=== PATIENT | male | born 1950 | race Two or more races ===

== ENCOUNTER 2025-02-25 08:53 | Inpatient (IN) | payer OTHER ==
[~2025-02-25] VITALS: Ht 165.1 cm; Wt 86.2 kg
[2025-02-25] MEDS ORDERED: NORVASC5 MG PO (09:11)
[2025-02-25] MEDS ORDERED: ZETIA10 MG PO (09:11)
[2025-02-25] MEDS ORDERED: ATORVASTATIN CA20 MG PO (09:11)
--- NOTE | 2025-02-25 09:13 | NUR ---
SE RECIBE GREER ALERTA Y ORIENTADO X3 QUIEN REFIERE HINCHAZON EN LA PIERNA DERECHA. SE OBSERVA PIERNA CON EDEMA, ERITEMA. SE OSBERVAN DOS ULCERAS CON SIGNOS DE INFECCION Y TEJIDO NECROTICO. SE MIDEN S/V Y SE UBICA.
--- NOTE | 2025-02-25 10:04 | NUR ---
SE ORIENTA PTE SOBRE TX, REFIERE ENTENDER Y ACEPTAR. SE LE MARIANNE MUESTRAS DE LABORATORIO, SE CANALIZA Y SE ENTREGA KIT PARA MUESTRA DE LABORATORIO.
[2025-02-25] MEDS ORDERED: VANCOMYCIN HCL 1,000 MG VIAL IV ONE (10:30)
[2025-02-25 10:36] LABS: URINE APPEARANCE Clear; URINE BILIRRUBIN Negative (NEGATIVE); URINE BLOOD Negative; URINE COLOR Dark Yellow; URINE GLUCOSE Negative (NEGATIVE); URINE KETONE Trace (NEGATIVE); URINE LEUKOCYTE Negative; URINE NITRATE Negative; URINE PROTEIN 30 (NEGATIVE)
[2025-02-25 10:43] LABS: URINE BACTERIA 9.7 uL (0.0-1933); URINE EPITHELIAL CELLS 4.8 uL (0.0-38.8); URINE RBC 12.5 uL (0.0-20.8); URINE WBC 4.4 uL (0.0-23.2)
[2025-02-25 11:10] LABS: URINE CAST 0.73 uL (0.0-1.40)
[2025-02-25 11:21] LABS: BASO % 0.3 % (0.1-1.2); EOS # 0.22 (0.04-0.54); EOS % 1.6 % (0.7-7.0); HEMATOCRIT 43.1 % (40.1-51.0); HEMOGLOBIN 14.7 g/dL (13.7-17.5); LYMPH % 13.2 % (19.3-53.1); MEAN CORPUSCULAR HEMOGLOBIN 29.8 pg (25.6-32.2); MONO # 1.99 (0.24-0.82); NEUT # 9.57 (1.56-6.13); PLATELET COUNT 331 K/uL (163-369); RED BLOOD COUNT 4.94 M/uL (4.63-6.08); RED CELL DISTRIBUTION WIDTH 13.1 % (11.6-14.4)
[2025-02-25 11:24] LABS: MONO % 14.6 % (4.7-12.5)
[2025-02-25 11:39] LABS: CALCIUM 9.1 mg/dL (8.5-10.1); CREATININE SERUM 0.95 mg/dL (0.70-1.30); GFR 77.29; POTASSIUM 4.4 mEq/L (3.5-5.1)
[2025-02-25] MEDS ORDERED: VANCOMYCIN HCL 1,000 MG VIAL ONE ×2 (11:44→21:18)
[2025-02-25 16:49] VITALS: BP 125/66
[2025-02-25 17:27] VITALS: BP 141/83; O2SAT 96
[2025-02-25] MEDS ORDERED: hydrALAZINE HCL 20 MG VIAL IV PRN (19:15)
[2025-02-25] MEDS ORDERED: MORPHINE SULFATE 4 MG/ML CARTRIDGE IV PRN (19:15)
[2025-02-25] MEDS ORDERED: SODIUM CHLORIDE 0.45 % 1,000 ML IV SCH (19:15)
[2025-02-25] MEDS ORDERED: ACETAMINOPHEN 500 MG GEL..CAP PO PRN (19:15)
[2025-02-25] MEDS ORDERED: ATORVASTATIN CALCIUM 40 MG TABLET PO NR (20:00)
[2025-02-25] MEDS ORDERED: PIPERACILLIN/TAZOBACTAM SODIUM 3.375 GM in 0.9 % SODIUM CHLORIDE 100 ML IV SCH (20:00)
[2025-02-25] MEDS ORDERED: DOCUSATE SODIUM 100MG CAP PO SCH (21:00)
[2025-02-25] MEDS ORDERED: VANCOMYCIN HCL 1,000 MG VIAL IV SCH (21:00)
[2025-02-26 01:00] VITALS: BP 113/70; O2SAT 95
[2025-02-26] MEDS ORDERED: VANCOMYCIN HCL 1,000 MG VIAL ONE ×3 (06:55→14:53)
[2025-02-26 07:09] LABS: BASO % 0.3 % (0.1-1.2); EOS # 0.41 (0.04-0.54); EOS % 3.8 % (0.7-7.0); HEMATOCRIT 35.6 % (40.1-51.0); HEMOGLOBIN 12.1 g/dL (13.7-17.5); LYMPH % 11.1 % (19.3-53.1); MEAN CORPUSCULAR HEMOGLOBIN 29.6 pg (25.6-32.2); MONO # 1.79 (0.24-0.82); NEUT # 7.38 (1.56-6.13); PLATELET COUNT 288 K/uL (163-369); RED BLOOD COUNT 4.09 M/uL (4.63-6.08); RED CELL DISTRIBUTION WIDTH 13.1 % (11.6-14.4)
[2025-02-26 07:27] LABS: MONO % 16.5 % (4.7-12.5)
[2025-02-26 07:39] LABS: INR 1.04; PARTIAL THROMBOPLASTIN TIME 27.9 SECONDS (22.0-34.0); PROTHROMBIN TIME 11.3 SECONDS (9.0-11.5)
[2025-02-26 08:00] VITALS: BP 128/66; O2SAT 96
[2025-02-26 08:46] LABS: ALBUMIN 2.9 gm/dL (3.4-5.0); BILIRUBIN TOTAL 0.66 mg/dL (0.3-1.2); C-REACTIVE PROTEIN 5.79 MG/DL (0.00-0.29); CALCIUM 8.3 mg/dL (8.5-10.1); CHOL HDL RATIO 2.1 (0-5.0); CREATININE SERUM 0.98 mg/dL (0.70-1.30); GFR 74.56; GLOBULINA 2.9 G/DL (2.4-3.5); MAGNESIUM 2.1 mg/dL (1.8-2.4); PHOSPHOROUS 3.3 mg/dL (2.5-4.9); POTASSIUM 4.45 mEq/L (3.5-5.1); PROSTATIC SPECIFIC ANTIGEN 0.214 NG/ML (0.010-4.00); T4 FREE 1.15 NG/ML (0.76-1.46); TOTAL PROTEIN 5.8 gm/dL (6.4-8.2); TSH 1.06 uIU/mL (0.358-3.74)
[2025-02-26] MEDS ORDERED: AMLODIPINE BESYLATE 5 MG TABLET PO SCH (09:00)
[2025-02-26] MEDS ORDERED: RIVAROXABAN 10 MG TAB PO SCH (09:00)
[2025-02-26 16:14] VITALS: BP 153/70; O2SAT 96
[2025-02-26] MEDS ORDERED: LACTOBACILLUS ACIDOPHILUS 1 CAP CAP PO SCH (17:00)
[2025-02-26] MEDS ORDERED: ATORVASTATIN CALCIUM 40 MG TABLET PO SCH (17:00)
[2025-02-26] MEDS ORDERED: VANCOMYCIN HCL 5 MG/ML REDILUIDO IV SCH (21:00)
[2025-02-27 01:00] VITALS: BP 121/67; O2SAT 95
[2025-02-27 06:54] LABS: BASO % 0.2 % (0.1-1.2); EOS % 4.2 % (0.7-7.0); HEMATOCRIT 35.9 % (40.1-51.0); HEMOGLOBIN 11.8 g/dL (13.7-17.5); LYMPH # 1.17 (1.18-3.74); LYMPH % 12.4 % (19.3-53.1); MEAN CORPUSCULAR HEMOGLOBIN 29.3 pg (25.6-32.2); MONO # 1.46 (0.24-0.82); NEUT # 6.34 (1.56-6.13); NEUT % 67.4 % (34.0-71.1); PLATELET COUNT 296 K/uL (163-369); RED BLOOD COUNT 4.03 M/uL (4.63-6.08); RED CELL DISTRIBUTION WIDTH 13.2 % (11.6-14.4)
[2025-02-27 07:31] LABS: MONO % 15.5 % (4.7-12.5)
[2025-02-27 07:42] LABS: PH,URINE 6.5 (5.0-8.0); URINE APPEARANCE Clear; URINE BILIRRUBIN Negative (NEGATIVE); URINE BLOOD Negative; URINE COLOR Yellow; URINE GLUCOSE Negative (NEGATIVE); URINE KETONE Negative (NEGATIVE); URINE LEUKOCYTE Negative; URINE NITRATE Negative; URINE PROTEIN Negative (NEGATIVE); URINE UROBILINOGEN 0.2 E.U./dl
[2025-02-27 07:55] LABS: URINE BACTERIA 2.4 uL (0.0-1933); URINE CAST 0.14 uL (0.0-1.40); URINE EPITHELIAL CELLS 0.7 uL (0.0-38.8); URINE RBC 1.1 uL (0.0-20.8); URINE WBC 0.6 uL (0.0-23.2)
[2025-02-27 08:00] VITALS: BP 138/86; O2SAT 98
[2025-02-27 08:09] LABS: ALBUMIN 2.7 gm/dL (3.4-5.0); BILIRUBIN TOTAL 0.78 mg/dL (0.3-1.2); CALCIUM 8.4 mg/dL (8.5-10.1); CREATININE SERUM 0.95 mg/dL (0.70-1.30); GFR 77.29; GLOBULINA 2.9 G/DL (2.4-3.5); MAGNESIUM 1.8 mg/dL (1.8-2.4); PHOSPHOROUS 3.8 mg/dL (2.5-4.9); POTASSIUM 4.95 mEq/L (3.5-5.1); TOTAL PROTEIN 5.6 gm/dL (6.4-8.2)
[2025-02-27 08:10] LABS: C-REACTIVE PROTEIN 5.67 MG/DL (0.00-0.29)
[2025-02-27 17:08] VITALS: BP 132/76; O2SAT 96
[2025-02-28 00:39] VITALS: BP 116/70; O2SAT 92
[2025-02-28 04:00] VITALS: BP 115/71; O2SAT 98
[2025-02-28] MEDS ORDERED: CHLORHEXIDINE GLUCONATE 15ML BRUSH KIT MM SCH (06:59)
[2025-02-28] MEDS ORDERED: CHLORHEXIDINE GLUCONATE 120 ML BOTTLE TOP SCH (09:00)
[2025-02-28] MEDS ORDERED: LINEZOLID IN DEXTROSE 5% 300 ML IV SCH (09:00)
[2025-02-28] MEDS ORDERED: MUPIROCIN 15 GM OINT..GM TUBE NASAL SCH (09:00)
[2025-02-28 09:20] VITALS: BP 125/66; O2SAT 99
[2025-02-28 17:29] VITALS: BP 126/68
[2025-03-01 01:24] VITALS: BP 133/70
[2025-03-01 06:58] LABS: BASO % 0.3 % (0.1-1.2); EOS # 0.43 (0.04-0.54); EOS % 5.8 % (0.7-7.0); HEMOGLOBIN 12.4 g/dL (13.7-17.5); LYMPH % 14.9 % (19.3-53.1); MONO # 1.26 (0.24-0.82); NEUT # 4.55 (1.56-6.13); NEUT % 61.6 % (34.0-71.1); PLATELET COUNT 336 K/uL (163-369); RED BLOOD COUNT 4.13 M/uL (4.63-6.08)
[2025-03-01 07:14] LABS: MONO % 17.1 % (4.7-12.5)
[2025-03-01 07:27] LABS: ALBUMIN 2.9 gm/dL (3.4-5.0); BILIRUBIN TOTAL 0.46 mg/dL (0.3-1.2); CALCIUM 8.3 mg/dL (8.5-10.1); CREATININE SERUM 0.87 mg/dL (0.70-1.30); GFR 85.54; GLOBULINA 3.1 G/DL (2.4-3.5); MAGNESIUM 1.8 mg/dL (1.8-2.4); PHOSPHOROUS 3.6 mg/dL (2.5-4.9); POTASSIUM 4.95 mEq/L (3.5-5.1)
[2025-03-01 07:29] LABS: C-REACTIVE PROTEIN 3.56 MG/DL (0.00-0.29)
[2025-03-01 08:30] VITALS: BP 136/80; O2SAT 95
[2025-03-01 18:32] VITALS: BP 156/73
[2025-03-02 00:50] VITALS: BP 118/67
[2025-03-02 09:04] VITALS: BP 130/74; O2SAT 92
[2025-03-02] MEDS ORDERED: CHLORHEXIDINE118 M1 TOP (14:48)
[2025-03-02] MEDS ORDERED: MUPIROCIN22 GM NASAL (14:49)
[2025-03-02] MEDS ORDERED: LINEZOLID600 MG PO (14:50)
== END 2025-03-02 15:30 | disposition home or self-care (01) | DRG 581 ==
LOC: ER 08:53 → EDBD 08:53 → ER 16:01 → SEC-K 16:04 → SURG 16:04 → MEDJ 02-27 17:54 → SURG 02-27 17:59 → MEDJ 02-28 07:21
PROVIDERS: Emergency Medicine; Internal Medicine Infectious Disease; ADMIT Internal Medicine; ATTEND Internal Medicine
PROC: B54DZZZ Ultrasonography of Bilateral Lower Extremity Veins (ICD-10-PCS; 2025-02-25)
PROC: 0JDP0ZZ Extraction of Left Lower Leg Subcutaneous Tissue and Fascia, Open Approach (ICD-10-PCS; principal; 2025-02-26)
PROC: B24BZZZ Ultrasonography of Heart with Aorta (ICD-10-PCS; 2025-02-26)
DX: L03.115 Cellulitis of right lower limb (principal); L02.415 Cutaneous abscess of right lower limb; I87.2 Venous insufficiency (chronic) (peripheral); I10 Essential (primary) hypertension; B95.61 Methicillin susceptible Staphylococcus aureus infection as the cause of diseases classified elsewhere